=== PATIENT | male | born 1950 | race Caucasian/White ===

== ENCOUNTER 2019-08-06 15:35 | Emergency (ER) | payer MEDICARE, OTHER ==
[~2019-08-06] VITALS: Ht 188 cm; Wt 104.3 kg
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
[2019-08-06] MEDS ORDERED: BACI/NEOM/POLY B OINT PKT 1 UDPKT PACKET ONE ×2 (15:59→16:05)
[2019-08-06] MEDS ORDERED: BACI/NEOM/POLY B OINT PKT 1 UDPKT PACKET TP ONE ×2 (16:00→16:30)
[2019-08-06] MEDS ORDERED: TDAP [DIPH/PERTUSSIS/TET] 0.5 ML VIAL IM ONE ×2 (16:00)
--- NOTE | 2019-08-06 16:00 | NUR ---
CALLED [facility], CHARGE NURSE JAYME WILL CALL BACK IN 15 MINUTES
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
--- NOTE | 2019-08-06 17:15 | NUR ---
Patient discharged to home in stable condition. Written prescription provided to patient. Written and verbal after care instructions given. Patient verbalizes understanding of instruction.
[2019-08-06 17:18] VITALS: BP 154/82
== END 2019-08-06 17:19 | disposition home or self-care (01) ==
LOC: ER 15:38
DX: T24.211A Burn of second degree of right thigh, initial encounter (principal); T31.0 Burns involving less than 10% of body surface; I10 Essential (primary) hypertension; E78.00 Pure hypercholesterolemia, unspecified; Z98.890 Other specified postprocedural states; X11.8XXA Contact with other hot tap-water, initial encounter; Y93.89 Activity, other specified; Y92.89 Other specified places as the place of occurrence of the external cause; Y99.8 Other external cause status
CPT/HCPCS: 16020; 90471; 90715; 99284; A6253